=== PATIENT | female | born 1980 | race Caucasian/White ===

== ENCOUNTER 2017-07-17 08:38 | Outpatient (CLI) | payer OTHER | END 2017-07-17 20:46 | disposition home or self-care (01) | LOC: SMI 08:38 | PROVIDERS: ATTEND Psychiatry & Neurology Neurology with Special Qualifications in Child Neurology | DX: G43.909 Migraine, unspecified, not intractable, without status migrainosus (principal) | CPT/HCPCS: 70553; A9579 ==